=== PATIENT | female | born 1950 | race Caucasian/White ===

== ENCOUNTER 2024-01-25 07:50 | Day surgery (SDC) | payer OTHER ==
[~2024-01-25] VITALS: Ht 160 cm; Wt 81.5 kg
[~2024-01-25 07:50] MED LIST: BUPR150ER PO; BUPR150T2 PO; Budeprion Sr150 MG PO; CALCAVITD PO; CLIM.025TP PO; ESTR2 PO; LISI20 PO; Lactated Ringer's 1,000 ML IV ONE; METH10 PO; OMEP20ER PO; OXYACE5T PO; ROXICODONE5 MG PO; propofoL 50 ML IV ONE
[2024-01-25] MEDS ORDERED: Ondansetron HCl 2 MG / ML 2ML Vial ONE (08:30)
[2024-01-25] MEDS ORDERED: Lactated Ringer's 1,000 ML IV ONE (09:27)
--- NOTE | 2024-01-25 09:35 | NUR ---
01/25/24 0935 LENA RODRÍGUEZ, DIAN - CHARGE NURSE IN TO SEE PROVIDER PRIOR TO THIS RN ASSESSING PT. PT REPORTS VOMITING AND BLOOD IN VOMIT DURING PREPPING PRIOR TO PRE OP. PT MEDICATED WITH 4MG IV ZOFRAN BY DIAN MILLAN. THIS RN IN TO SEE PATIENT WITH REPORTED IMPROVEMENT. PT REPORTS SHE IS FEELING BETTER AND IS RESTING ON HER LEFT SIDE.
[2024-01-25 10:43] VITALS: BP 119/95
== END 2024-01-25 10:44 | disposition home or self-care (01) ==
LOC: ORSCSDS 07:50
PROVIDERS: Specialist
PROC: 0DB98ZX Excision of Duodenum, Via Natural or Artificial Opening Endoscopic, Diagnostic (ICD-10-PCS; principal; 2024-01-25 10:00)
PROC: 0DJD8ZZ Inspection of Lower Intestinal Tract, Via Natural or Artificial Opening Endoscopic (ICD-10-PCS; principal; 2024-01-25 10:00)
PROC: 0DB68ZX Excision of Stomach, Via Natural or Artificial Opening Endoscopic, Diagnostic (ICD-10-PCS; principal; 2024-01-25 10:00)
DX: R19.5 Other fecal abnormalities (principal); R11.2 Nausea with vomiting, unspecified; R10.13 Epigastric pain; K29.70 Gastritis, unspecified, without bleeding; K20.90 Esophagitis, unspecified without bleeding; K44.9 Diaphragmatic hernia without obstruction or gangrene; K64.8 Other hemorrhoids; K57.30 Diverticulosis of large intestine without perforation or abscess without bleeding; K21.9 Gastro-esophageal reflux disease without esophagitis; M79.7 Fibromyalgia; E78.5 Hyperlipidemia, unspecified; I10 Essential (primary) hypertension; F11.20 Opioid dependence, uncomplicated; Z79.899 Other long term (current) drug therapy
CPT/HCPCS: 88305; 88342; J2405; J2704; J7120